=== PATIENT | male | born 1965 | race Asian ===

== ENCOUNTER 2023-05-05 09:26 | Day surgery (SDC) | payer OTHER ==
[~2023-05-05] VITALS: Ht 167.6 cm; Wt 85.3 kg
[2023-05-05] MEDS ORDERED: MIDAZOLAM 2 MG/2 ML VIAL ONE (11:11)
[2023-05-05] MEDS ORDERED: fentaNYL citrate 0.05 MG/ML VIAL ONE (11:12)
[2023-05-05] MEDS ORDERED: fentaNYL citrate 0.05 MG/ML VIAL IVP ONE (11:55)
[2023-05-05] MEDS ORDERED: MIDAZOLAM 2 MG/2 ML VIAL IVP ONE (11:55)
== END 2023-05-05 12:38 | disposition home or self-care (01) ==
LOC: MDS 09:26 → MMU 09:27 → MDS 12:38
PROVIDERS: ATTEND Internal Medicine Gastroenterology
DX: K21.00 Gastro-esophageal reflux disease with esophagitis, without bleeding (principal); K44.9 Diaphragmatic hernia without obstruction or gangrene; K25.9 Gastric ulcer, unspecified as acute or chronic, without hemorrhage or perforation; I10 Essential (primary) hypertension; E78.00 Pure hypercholesterolemia, unspecified; E11.9 Type 2 diabetes mellitus without complications; Z79.82 Long term (current) use of aspirin; Z79.84 Long term (current) use of oral hypoglycemic drugs; Z79.899 Other long term (current) drug therapy
CPT/HCPCS: 36415; 43239; 82948; 86677; J2250; J3010